=== PATIENT | female | born 1985 | race Caucasian/White ===

== ENCOUNTER 2019-07-08 17:05 | Emergency (ER) | payer OTHER, SELFPAY ==
[2019-07-08 17:28] VITALS: BP 116/86; PULSE 91; RESP 16; TEMP 37.3; O2SAT 99
--- NOTE | 2019-07-08 17:32 | ED.GENADULT ---
HPI - General Adult General Chief complaint: Upper Respiratory Infection Stated complaint: Possible Sinus infection Time Seen by Provider: 07/08/19 17:33 Source: patient and RN notes reviewed Mode of arrival: ambulatory Limitations: no limitations History of Present Illness HPI narrative: This is a 34 years old female presents the office for an evaluation of possible sinus infection. Symptoms began 8days ago with sinus pain/headache, stuffy nose and barking cough. Symptoms are worsening for the last few days. States, she had tried multiple otc cold/decongestion medication with no relief. She admits to smoke. Her daughter is sick with similar symptoms. Related Data Home Medications Medication Instructions Recorded Confirmed atomoxetine 40 mg PO BID 07/08/19 07/08/19 dextroamphetamine-amphetamine 10 mg DIRECTED 07/08/19 07/08/19 dextroamphetamine-amphetamine 20 mg DAILY 07/08/19 07/08/19 drospirenone (contraceptive) 4 mg DAILY 07/08/19 07/08/19 [Slynd] Allergies Allergy/AdvReac Type Severity Reaction Status Date / Time No Known Allergies Allergy Verified 07/08/19 17:30 Review of Systems Review of Systems: Narrative: CONSTITUTIONAL: Denies fever. Reports feeling malaise/tired ENT: Reports rhinorrhea, congestion, sore throat. Denies otalgia. CARDIOVASCULAR: Denies chest pain RESPIRATORY: Reports productive cough at times GASTROINTESTINAL: Denies abdominal pain, nausea, vomiting. Reports diarrhea; no blood/dark color stools GENITOURINARY: Denies urinary symptoms SKIN: Denies rash MUSCULOSKELETAL: Denies acute back pain NEUROLOGIC: Denies lightheaded PMFSH Past Medical History Medical History ADHD Anxiety and depression Surgical History Surgical History H/O section Family History Family History Mother Patient's mother is in good health Father Patient's father is in good health Social History Social History Smoking status: Current every day smoker Second hand tobacco smoke exposure: No Alcohol intake: current Gender identity (if verbalized by the patient): Female Comments At time of signature, I agree with nursing past medical, surgical, social and family history. There is no relevant family history pertinent to the presenting complaint. Exam Narrative: Exam Narrative: GENERAL: This is a well-nourished, well-developed patient, appears irritable; not in acute distress. EYES: Sclera clear/white. Vision is grossly intact. EARS: External ears normal, auditory canals clear and without drainage, TMs normal without perforation. Hearing grossly intact. NOSE: External nose normal with no obvious nasal discharge, nares edematous. Sinus tenderness to palpation. THROAT: Mucous membranes moist, posterior pharynx clear. NECK: Neck supple, non-tender without lymphadenopathy, masses or thyromegaly. CARDIOVASCULAR: Regular rate and rhythm without murmurs, gallops, or rubs. RESPIRATORY: Clear to auscultation with frequent cough. Breath sounds equal bilaterally. No wheezes, rales, or rhonchi. GASTROINTESTINAL: Abdomen soft, non-tender, nondistended. Bowel sounds are active. No guarding. SKIN: warm, intact with no suspicious lesions or rash, good texture and turgor. NEURO: awake, alert, and oriented to person, place and time. There were no obvious focal neurologic abnormalities. Steady gait Uriah Coma Scale Eye Opening: Spontaneous 4 Uriah Coma Scale Motor: Obeys Commands 6 [place] Coma Scale Verbal: Oriented 5 Course Vital Signs Vital signs: Vital Signs Temperature 99.2 F 07/08/19 17:28 Pulse Rate 91 07/08/19 17:28 Respiratory Rate 16 07/08/19 17:28 Blood Pressure 116/86 07/08/19 17:28 Pulse Oximetry 99 07/08/19 17:28 Temperature 99.2 F
== END 2019-07-08 18:00 | disposition home or self-care (01) ==
PROVIDERS: Emergency Provider Nurse Practitioner
DX: J06.9 Acute upper respiratory infection, unspecified (principal); R05 Cough; F17.200 Nicotine dependence, unspecified, uncomplicated; F90.9 Attention-deficit hyperactivity disorder, unspecified type
CPT/HCPCS: 99213; G0463

== ENCOUNTER 2023-02-06 13:03 | Emergency (ER) | payer OTHER, SELFPAY ==
[2023-02-06 13:16] VITALS: BP 112/75; PULSE 105; RESP 16; TEMP 37.1; O2SAT 99
[2023-02-06 13:18] VITALS: BP 112/75; PULSE 105; RESP 16; TEMP 37.1; O2SAT 99
--- NOTE | 2023-02-06 13:34 | ED.GENADULT ---
HPI - General Adult General Chief complaint: Upper Respiratory Infection Stated complaint: sinus issues Source: patient Mode of arrival: ambulatory Limitations: no limitations History of Present Illness HPI narrative: Patient presents for evaluation of sinus symptoms for last 3-4 weeks. She reports sinus congestion, thick drainage, and increased sinus pressure. She has used Traci-Goshen cold and Sinus and a nasal rinse without much improvement. She has a cough secondary to some postnasal drainage but denies cough otherwise. No fever, chills, nausea, vomiting, shortness of breath. No recent sick contacts to her knowledge. She does admit to daily vape use. Related Data Home Medications Medication Instructions Recorded Confirmed desvenlafaxine succinate 25 mg mg PO 02/06/23 tablet,extended release 24 hr Allergies Allergy/AdvReac Type Severity Reaction Status Date / Time No Known Allergies Allergy Verified 02/06/23 13:17 Review of Systems Review of Systems: CONSTITUTIONAL: Denies fever, chills, or sweats. EYES: Denies visual changes, redness, or discharge. ENT: Reports sinus congestion, thick nasal discharge and increased sinus pressure. Reports some ear discomfort CARDIOVASCULAR: Denies chest pain, palpitations, or edema. RESPIRATORY: Reports an occasional cough 2/2 postnasal drainage. Denies cough otherwise. Denies dyspnea. GASTROINTESTINAL: Denies abdominal pain, nausea, vomiting, or diarrhea. GENITOURINARY: Denies dysuria or hematuria. SKIN: Denies rash or itching. MUSCULOSKELETAL: Denies back pain, joint pain, or myalgia. NEUROLOGIC: Denies headache, numbness, dizziness, or weakness. PSYCHIATRIC: Denies anxiety or depression. [facility] Past Medical History Medical History ADHD Anxiety and depression Surgical History Surgical History H/O section Family History Family History Mother Patient's mother is in good health Father Patient's father is in good health Social History Social History Smoking status: Current every day smoker Tobacco type: e-cigarettes/vaping Second hand tobacco smoke exposure: No Alcohol intake: current Gender identity (if verbalized by the patient): Female Spiritual care concerns: No Exam Narrative: GENERAL: Well-appearing, well-nourished, and in no acute distress. HEAD: Normocephalic, atraumatic. EYES: PERRLA and EOMI. ENT: There is frontal and bilateral maxillary sinus tenderness. There is thick yellow drainage in nares. Mucous membranes moist. Oropharynx without tonsillar hypertrophy exudate or other lesions. Bilateral TMs pearly gore nonbulging NECK: Supple. No adenopathy or masses. No carotid bruits or JVD CHEST: Clear to auscultation. No respiratory distress. No wheezes rales or rhonchi HEART: Regular rate and rhythm. No murmur heard. Normal peripheral pulses. ABDOMEN: Soft, nontender, nondistended, normal active bowel sounds. EXTREMITIES: Normal range of motion. No edema. SKIN: Warm, dry, no rash. NEURO: No focal deficits. Alert and oriented x3. PSYCH: Normal mood and affect. Course Course Emergency Course: This is a 37-year-old female who presented for evaluation of sick symptoms. she meets criteria for ABRS based upon duration of time in which she has been symptomatic and purulent nature of discharge. Advised she not vape. Will DC with Augmentin. Increase hydration. [id number] agents for symptom management. Follow up with primary provider. Go to the ER for worsening symptoms. Patient in agreement with plan of care. Level of Care: Express Care Visit Vital Signs Vital signs: Vital Signs Temperature 37.1 C 02/06/23 13:16 Pulse Rate 105 H 02/06/23 13:16 Respira
== END 2023-02-06 13:36 | disposition home or self-care (01) ==
PROVIDERS: Emergency Provider Nurse Practitioner
DX: J01.90 Acute sinusitis, unspecified (principal); F17.290 Nicotine dependence, other tobacco product, uncomplicated
CPT/HCPCS: 99213; G0463